=== PATIENT | female | born 1965 | race Caucasian/White ===

== ENCOUNTER → 2016-04-25 | Outpatient (CLI) | payer MEDICARE ==
--- NOTE | 2016-04-25 09:16 | MRI ---
EXAM DESCRIPTION: MRI brain without contrast CLINICAL HISTORY: Dizziness. Headaches COMPARISON: None Available. TECHNIQUE: Multi planar, multi sequence MRI evaluation of the brain FINDINGS: No intracranial hemorrhage, infarction, or mass lesion. Normal culp-white matter differentiation. No restricted diffusion. Sagittal FLAIR images best demonstrate approximately 6 total punctate T2/FLAIR white matter hyperintensities in the subcortical and deep white matter bilateral cerebral hemispheres. These are nonspecific Ferkel, likely remote microvascular ischemia. This can be seen in patients with migraine headaches. There are no characteristic lesions to suggest demyelination/ multiple sclerosis. No abnormality of the corpus callosum, brainstem or posterior fossa. No structural abnormality of the brain Ventricles are normal in size and configuration Normal flow voids are present in the major intracranial arteries and dural venous sinuses No abnormality is seen along the course of the cranial nerves. Normal appearance of the temporal bones Orbits are grossly normal Normal aeration of paranasal sinuses and mastoid air cells IMPRESSION: A few bilateral punctate foci of T2/FLAIR white matter hyperintensity, nonspecific likely remote microvascular ischemia No acute abnormality of the brain Electronically signed by: Juanjo Palacios MD 04/25/2016 09:14
== END ==
LOC: MRI 08:12
PROVIDERS: ATTEND Family Medicine
DX: R42 Dizziness and giddiness (principal)

== ENCOUNTER → 2017-04-19 | Outpatient (CLI) | payer MEDICARE | END | disposition home or self-care (01) | LOC: GMATM 17:02 | PROVIDERS: ATTEND Nurse Practitioner Family | DX: N30.00 Acute cystitis without hematuria (principal) ==

== ENCOUNTER → 2017-07-02 | Outpatient (CLI) | payer MEDICARE | LOC: GMAB 17:05 | PROVIDERS: ATTEND Family Medicine | DX: N39.0 Urinary tract infection, site not specified (principal) ==

== ENCOUNTER → 2018-01-18 | Outpatient (CLI) | payer MEDICARE | LOC: LAB.O 08:38 | PROVIDERS: ATTEND General Practice | DX: Z00.00 Encounter for general adult medical examination without abnormal findings (principal); Z13.1 Encounter for screening for diabetes mellitus; K21.9 Gastro-esophageal reflux disease without esophagitis; R53.83 Other fatigue; K29.70 Gastritis, unspecified, without bleeding ==

== ENCOUNTER → 2018-02-21 | Outpatient (CLI) | payer MEDICARE ==
--- NOTE | 2018-02-22 09:35 | RAD ---
EXAM DESCRIPTION: Shoulder,Left 2 or More Views CLINICAL HISTORY: PAIN COMPARISON: November 04, 2015 IMPRESSION: 4 views of the left shoulder shows no evidence of acute fracture, focal bone destruction, or joint dislocation. Irregularity of the lateral aspect of the humeral head is again seen which could be related to prior surgery and/or degenerative changes. The left acromioclavicular joint is unremarkable. Electronically signed by: Dajuan Singleton MD 02/22/2018 9:33 AM [facility]
== END ==
LOC: RAD 16:43
PROVIDERS: ATTEND Orthopaedic Surgery
DX: M25.512 Pain in left shoulder (principal)

== ENCOUNTER → 2018-02-27 | Outpatient (CLI) | payer MEDICARE ==
--- NOTE | 2018-02-27 10:37 | MRI ---
MRI left shoulder without contrast INDICATION: Shoulder pain previous surgery COMPARISON: MRI left shoulder March 28, 2016 TECHNIQUE: Noncontrast MR imaging left shoulder FINDINGS: There is tendinopathy of the subscapularis with mild edema at the lesser tuberosity. No rupture or retraction. No bicep rupture or dislocation. Moderate subacromial and subdeltoid bursitis. Previous repair of the supraspinatus and infraspinatus tendons with tendinosis and mild scarring. No rupture or retraction. Mild degenerative fraying of the labrum and minimal glenohumeral osteoarthrosis. No advanced arthrosis of the AC joint. Small subacromial enthesophyte. Grade 1-2 fatty marbling throughout the rotator cuff muscle bellies fairly symmetric. IMPRESSION: Rotator cuff repair without recurrent rupture or retraction Labral degeneration and minimal glenohumeral osteoarthrosis Moderate subacromial and subdeltoid bursitis Grade 1-2 fatty marbling of the rotator cuff muscle bellies Electronically signed by: Wes Durand MD 02/27/2018 10:35 AM [facility]
== END ==
LOC: MRI 07:07
PROVIDERS: ATTEND Orthopaedic Surgery
DX: M25.512 Pain in left shoulder (principal); M19.012 Primary osteoarthritis, left shoulder

== ENCOUNTER 2018-10-20 12:33 | Emergency (ER) | payer MEDICARE ==
[2018-10-20] MEDS ORDERED: HYDROmorphone HCL INJ 2 MG/ML VIAL IM ONE (12:40)
[2018-10-20] MEDS ORDERED: ONDANSETRON INJ 4 MG/2 ML VIAL IM ONE (12:40)
--- NOTE | 2018-10-20 12:43 | ED.PDOC ---
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 Occurred: just prior to arrival Pain - Lower Extremity: severe: Right Ankle Method of Injury: twisted Improving Factors: nothing Worsening Factors: movement Allergies/Adverse Reactions: Allergies Aspirin Allergy (Verified 11/04/15 14:39) Codeine Allergy (Verified 11/04/15 14:39) Ketorolac Tromethamine [From Toradol] Allergy (Verified 11/04/15 14:39) Naproxen [From Naprosyn] Allergy (Verified 11/04/15 14:39) NSAIDs Allergy (Verified 11/04/15 14:39) Home Medications: Ambulatory Orders Esomeprazole Magnesium [Nexium] 40 mg PO DAILY 08/12/15 Tramadol HCl 50 mg PO PRN PRN 08/12/15 diphenhydrAMINE HCL [Benadryl] 25 mg PO PRN PRN 08/12/15 Gabapentin 300 mg PO DAILY 11/04/15 HYDROcodone 5MG/APAP 325MG [Cors[place] 5/325] 1 tab PO Q4H PRN #20 tab 11/04/15 Tramadol HCl 50 mg PO Q4HWA PRN #20 tab 10/20/18 Review of Systems - Review of Systems Constitutional: States: no symptoms reported EENTM: States: no symptoms reported Gastrointestinal/Abdominal: States: no symptoms reported Musculoskeletal: States: see HPI, joint pain, joint swelling Skin: States: no symptoms reported Neurological: States: no symptoms reported Endocrine: States: no symptoms reported Hematologic/Lymphatic: States: no symptoms reported Past Medical History (General) - Patient Medical History Hx Asthma: Yes - hasnt had an attack in 10 years Hx Congestive Heart Failure: No Hx Diabetes: No - Vaccination History Hx Tetanus, Diphtheria Vaccination: Yes Hx Influenza Vaccination: No Hx Pneumococcal Vaccination: No - Social History Hx Tobacco Use: No Hx Alcohol Use: Yes - socially - Female History Patient : No Family Medical History - Family History Mother Maternal Family History: Unknown Living Status: Unknown Physical Exam - Physical Exam General Appearance: Alert, Obvious distress Eyes, Ears, Nose, Throat: PERRL/EOMI Thigh/Hip: normal inspection, non-tender Leg: other - tender distally Knee: normal inspection, non-tender, no evidence of injury Ankle: limited ROM, swelling - diffusely 2+ edema Foot: normal inspection, non-tender Neuro/Tendon: normal sensation Mental Status: alert, oriented x 3 Skin: normal color, warm/dry Departure - Departure Clinical Impression: Fracture of ankle, medial malleolus, right, closed Qualifiers: Encounter type: initial encounter Fracture alignment: displaced Qualified Code(s): S82.51XA - Displaced fracture of medial malleolus of right tibia, initial encounter for closed fracture Fracture of distal end of right fibula Qualifiers: Encounter type: initial encounter Fracture type: closed Fracture morphology: other fracture Qualified Code(s): S82.831A - Other fracture of upper and lower end of right fibula, initial encounter for closed fracture Disposition: Discharge to Home or Self Care Referrals: Sabas Laguna MD [Primary Care Provider] - 1-2 Weeks Juan Robb MD [Active Staff] - 1-5 Days Prescriptions: Tramadol HCl 50 mg PO Q4HWA PRN #20 tab PRN Reason: Moderate To Severe Pain Home Medications: Ambulatory Orders Esomeprazole Magnesium [Nexium] 40 mg PO DAILY 08/12/15 Tramadol HCl 50 mg PO PRN PRN 08/12/15 diphenhydrAMINE HCL [Benadryl] 25 mg PO PRN PRN 08/12/15 Gabapentin 300 mg PO DAILY 11/04/15 HYDROcodone 5MG/APAP 325MG [Corsica 5/325] 1 tab PO Q4H PRN #20 tab 11/04/15 Tramadol HCl 50 mg PO Q4HWA PRN #20 tab 10/20/18
--- NOTE | 2018-10-20 13:25 | RAD ---
EXAM DESCRIPTION: Ankle,Right 3 Views CLINICAL HISTORY: 52 years Female turned ankle COMPARISON: None TECHNIQUE: AP, lateral and oblique views of the left ankle are obtained. FINDINGS: OSSEOUS: There is an acute, oblique fracture involving the distal diaphysis of the fibula. There is also acute fractures of the medial malleolus and the posterior malleolus. There is no evidence of subluxation or dislocation. There are small noninflamed Achilles and plantar enthesophytes. There is widening of the medial aspect of the tibiotalar joint. There is no evidence of degenerative osteophytosis or sclerosis. There is no evidence of marginal erosive changes to suggest an inflammatory arthritis. Suspect disruption of the tibiofibular syndesmosis with mild anteromedial subluxation of the tibia relative to the talus. SOFT TISSUES: There is soft tissue swelling about the ankle and a posterior hemarthrosis is not excluded. No evidence of significant soft tissue calcifications. No radiopaque foreign bodies. There is no evidence of an ankle joint effusion. IMPRESSION: Trimalleolar fractures as described with disruption of the tibiofibular syndesmosis resulting in mild anteromedial subluxation of the distal tibia relative to the talus. Remainder of findings as described above. Electronically signed by: Michela Khan MD 10/20/2018 1:22 PM CDT
[2018-10-20 14:19] VITALS: BP 115/68; TEMP 98.2; O2SAT 97
== END 2018-10-20 14:00 | disposition home or self-care (01) ==
LOC: ER 12:33
DX: S82.51XA Displaced fracture of medial malleolus of right tibia, initial encounter for closed fracture (principal); S82.831A Other fracture of upper and lower end of right fibula, initial encounter for closed fracture; J45.909 Unspecified asthma, uncomplicated; Z79.899 Other long term (current) drug therapy; Z88.6 Allergy status to analgesic agent; Z88.5 Allergy status to narcotic agent; X50.9XXA Other and unspecified overexertion or strenuous movements or postures, initial encounter; Y92.9 Unspecified place or not applicable
CPT/HCPCS: 73610; J1170; J2405

== ENCOUNTER 2018-10-25 05:48 | Observation (INO) | payer MEDICARE ==
--- NOTE | 2018-10-22 09:00 | HP ---
CHIEF COMPLAINT: Left ankle pain. HISTORY OF PRESENT ILLNESS: Michela is a 53-year-old female with a history of a fall that occurred on 10/20/18. She had the acute onset of pain at that time. She complains of pain now on the ankle without radiation or neurologic symptoms. She denies any other injury associated with this fall. The pain itself is sharp and she has been in a splint since the injury occurred. PAST SURGICAL HISTORY: 1. Rotator cuff repair. 2. Gastric bypass. 3. Left knee surgery. MEDICATIONS: 1. Tramadol. 2. Linzess. 3. Singulair. PAIN CONTRACT: None. ALLERGIES: ASPIRIN, NAPROSYN, TORADOL, CODEINE, PENICILLIN. CODE STATUS: Full code. IMMUNIZATIONS: Up to date. SOCIAL HISTORY: The patient does not smoke or use any illicit drugs. She does drink on occasion. FAMILY HISTORY: None pertinent to today's complaint. REVIEW OF SYSTEMS: Negative except as indicated in the History of Present Illness. PHYSICAL EXAMINATION: VITAL SIGNS: Blood pressure 138/78. Pulse 64. Height 5'8". Weight 240 pounds. GENERAL: She is an obese female in no acute distress. MENTAL STATUS: The patient is awake, alert, and is able to give a good history and participate in the physical. The patient is oriented to person, place and time. SKIN: Normal tone and turgor. HEENT: Normocephalic, atraumatic. Pupils equal, round and reactive. Mucosal membranes are moist. NECK: Normal range of motion. No thyromegaly, no lymphadenopathy. CHEST: Normal respiratory excursion. CARDIAC: Regular rate and rhythm. No murmurs, rubs or gallops. MUSCULOSKELETAL: The bilateral upper extremities show full range of motion although she does have some pain in the shoulders. She has intact sensation and they are warm and well perfused. Strength in associate professor is 5/5. She has no deformities. The right lower extremity shows no deformities. She has no evidence of pain. Sensation is intact. It is warm and well perfused. The has full range of motion in the hip and knee. The left lower extremity shows diffuse swelling distally. The skin is intact. Around the ankle, she does have the aforementioned swelling with some bruising. The digits are warm and well perfused. She is able to move the digits without significant discomfort. The extremity otherwise is without any deformities. IMAGING: X-rays show a bimalleolar ankle fracture. ASSESSMENT: 1. Bimalleolar ankle fracture. PLAN: The plan at this point is for an open reduction and internal fixation. We have discussed the risks, benefits, and alternatives to that and the patient has given informed consent. [facility][id number] [facility]
--- NOTE | 2018-10-22 14:40 | RAD ---
EXAM DESCRIPTION: Chest,2 Views CLINICAL HISTORY: PREOP COMPARISON: Two view chest x-ray February 20, 2017 TECHNIQUE: PA/lateral FINDINGS: Right hemidiaphragm is elevated. Heart size is normal with normal pulmonary vascularity. No pleural effusion or pneumothorax. Lungs are clear with no consolidating infiltrate. Lateral view shows intact sternum and spurring in the mid T-spine. IMPRESSION: No acute process is identified in the chest. Electronically signed by: Denis Wall MD 10/22/2018 2:37 PM CDT
[2018-10-25] MEDS ORDERED: PROPOFOL 200 MG/20 ML VIAL IV ONE (07:00)
[2018-10-25] MEDS ORDERED: raNITIdine HCL INJ 25 MG/ML VIAL ONE (07:00)
[2018-10-25] MEDS ORDERED: LIDOCAINE 1% 10 ML VIAL INJ ONE (07:00)
[2018-10-25] MEDS ORDERED: DEXAMETHASONE INJ 10 MG/ML VIAL ONE (07:00)
[2018-10-25] MEDS ORDERED: SODIUM CHLORIDE 0.9% 50 ML VIAL ONE (07:00)
[2018-10-25] MEDS ORDERED: LACTATED RINGERS 1,000 ML ONE (13:21)
[2018-10-25] MEDS ORDERED: LACTATED RINGERS 1,000 ML BAG IV ONE (13:30)
[2018-10-25] MEDS ORDERED: ceFAZolin SODIUM 1 GM VIAL ONE (13:34)
[2018-10-25] MEDS ORDERED: SODIUM CHL 0.9% 100ML MINI-BAG 100 ML IVPB ONE (13:34)
[2018-10-25] MEDS ORDERED: VANCOMYCIN HCL INJ 1,000 MG VIAL IVPB ONE ×3 (13:34→13:43)
[2018-10-25] MEDS ORDERED: SODIUM CHLORIDE 0.9% 250ML 250 ML ONE (13:35)
[2018-10-25] MEDS ORDERED: BISACODYL SUPPOSITORY 10 MG PR PRN (14:00)
[2018-10-25] MEDS ORDERED: ALUMINUM & MAGNESIUM HYDROXIDE 30 ML UD PO PRN (14:00)
[2018-10-25] MEDS ORDERED: MAGNESIUM HYDROXIDE 30 ML UD PO PRN (14:00)
[2018-10-25] MEDS ORDERED: ACETAMINOPHEN 325 MG TAB PO PRN (14:00)
[2018-10-25] MEDS ORDERED: CYCLOBENZAPRINE HCL 10 MG TAB PO PRN (14:00)
[2018-10-25] MEDS ORDERED: ZOLPIDEM TARTRATE 5 MG TAB PO PRN (14:00)
[2018-10-25] MEDS ORDERED: BENZOCAINE-MENTH LOZ (CEPACOL) 1 EA LOZ MT PRN (14:00)
[2018-10-25] MEDS ORDERED: TEMAZEPAM 15 MG CAP PO PRN (14:00)
[2018-10-25] MEDS ORDERED: diphenhydrAMINE HCL 50 MG/ML VIAL ONE (14:12)
[2018-10-25] MEDS ORDERED: MIDAZOLAM INJ 2 MG/2 ML VIAL ONE (14:20)
[2018-10-25] MEDS ORDERED: fentaNYL CITRATE INJ 50 MCG/ML AMP ONE (14:20)
[2018-10-25] MEDS ORDERED: KETAMINE HCL 100 MG/ML VIAL ONE (14:20)
[2018-10-25] MEDS ORDERED: ACETAMINOPHEN IV 1000MG 0 ML ONE (15:03)
[2018-10-25] MEDS: BUPIVACAINE 0.5% 30 ML VIAL INJ ONE ×2 (15:12→16:04)
[2018-10-25] MEDS: BUPIVACAINE LIPOSOME 13.3 MG/ML VIAL INJ ONE ×2 (15:13→16:04)
[2018-10-25] MEDS: ceFAZolin SODIUM 1 GM VIAL ONE ×4 (15:13→16:00)
[2018-10-25] MEDS ORDERED: LACTATED RINGERS 1,000 ML IVS ONE (16:56)
[2018-10-25] MEDS ORDERED: LEVALBUTEROL NEBS 1.25 MG/3 ML VIAL NEB ONE ×2 (17:08→17:10)
[2018-10-25] MEDS ORDERED: MEPERIDINE HCL 50 MG/ML VIAL ONE (17:08)
[2018-10-25] MEDS ORDERED: MEPERIDINE HCL 50 MG/ML VIAL IV ONE (17:10)
[2018-10-25] MEDS ORDERED: BUPIVACAINE 0.5% 30 ML VIAL INJ ONE (17:21)
--- NOTE | 2018-10-25 17:41 | RAD ---
EXAM DESCRIPTION: Ankle,Left 2 Views CLINICAL HISTORY: 53 years Female ,post op COMPARISON: 10/20/2018. TECHNIQUE: Left ankle, two views FINDINGS: Open reduction and internal fixation of distal fibular and medial malleolar fracture. Alignment is near-anatomic. Medial malleolar fracture line still well visualized. Soft tissue swelling. Small joint effusion noted. IMPRESSION: ORIF with anatomic alignment Soft tissue swelling and small joint effusion Electronically signed by: Sangeeta Zaragoza MD 10/25/2018 5:39 PM CDT
[2018-10-25] MEDS: traMADol HCL 50 MG TAB PO PRN (22:42)
[2018-10-25] MEDS: diphenhydrAMINE HCL 25 MG CAP PO PRN (22:47)
[2018-10-26] MEDS: diphenhydrAMINE HCL 25 MG CAP PO PRN ×2 (05:51→10:53)
[2018-10-26] MEDS: traMADol HCL 50 MG TAB PO PRN (05:51)
[2018-10-26] MEDS ORDERED: OMEPRAZOLE CAP 20 MG CAP PO SCH (06:30)
[2018-10-26] MEDS ORDERED: traMADol HCL 50 MG TAB PO PRN (08:30)
[2018-10-26] MEDS ORDERED: LORATADINE 10 MG TAB PO SCH (09:00)
[2018-10-26] MEDS ORDERED: NON-FORMULARY MEDICATION 1 EA MIS (Linaclotide [Linzess] 72 MCG) PO SCH (09:00)
[2018-10-26] MEDS ORDERED: HYDROcodone 5MG/APAP 325MG 1 EA TAB PO ONE (11:49)
[2018-10-26 13:32] VITALS: O2SAT 94
[2018-10-26 17:04] VITALS: BP 123/78; TEMP 97.7
--- NOTE | 2018-10-28 08:02 | RAD ---
Findings/ impression: One intraoperative fluoroscopic image of the left ankle. No hardware complication. Dose: 71 mGy Time: One minute three seconds Electronically signed by: Gianfranco Phillips MD 10/28/2018 8:00 AM CDT
--- NOTE | 2018-10-30 08:24 | OP ---
DATE OF PROCEDURE: 10/25/18 PREOPERATIVE DIAGNOSIS: 1. Left ankle fracture. POSTOPERATIVE DIAGNOSIS: 1. Left ankle fracture. PROCEDURE: 1. Open reduction and internal fixation of ankle. SURGEON: Juan Robb MD. GERIATRIC NURSE ASSISTANT: Darnell San CST, SA-C. ANESTHESIA: General anesthesia. COMPLICATIONS: None. FINDINGS: Fracture of the distal fibula and fracture of the medial malleolus. INDICATION: Michela has a history of twisting injury after a fall a couple of days before presentation. Unfortunately, she had the acute onset of pain and x-rays revealed a fracture of the ankle. After discussing the risks, benefits and alternatives to ORIF, she gave informed consent for that. PROCEDURE: The patient was brought to the Operating Room and placed in supine position. General anesthesia was induced and the patient's leg was sterilely prepped and draped. Following prepping and draping, an incision was made on the lateral border of the fibula. Dissection was carried down to the fibula and the periosteum was elevated over the fracture site. The fracture was reduced and the reduction was checked under fluoroscopic imaging. Following that, a plate was applied and a combination of locking and cortical bone screws were used to fixed the plate. Attention was focused on the medial side and an incision was made directly over the fracture. It was visualized, reduced with a clamp and two 4.0 partially threaded cancellous screws were placed across the fracture. The ankle was stressed under fluoroscopic imaging and there was no lateral translation of the talus. The wounds were very thoroughly irrigated and closed. Sterile dressings were placed. The patient was placed in a splint, awoken from anesthesia and taken to Recovery. POSTOPERATIVE PLAN: She will be non-weightbearing and will be admitted overnight for pain control and elevation. #[id number] [facility]
== END 2018-10-26 17:15 | disposition home or self-care (01) ==
LOC: AMB 05:48 → MS 18:27
PROVIDERS: ADMIT Orthopaedic Surgery; ATTEND Nurse Practitioner Acute Care
DX: S82.842A Displaced bimalleolar fracture of left lower leg, initial encounter for closed fracture (principal); M25.472 Effusion, left ankle; J45.909 Unspecified asthma, uncomplicated; K21.9 Gastro-esophageal reflux disease without esophagitis; E66.9 Obesity, unspecified; W18.39XA Other fall on same level, initial encounter; Z68.37 Body mass index [BMI] 37.0-37.9, adult; Z79.51 Long term (current) use of inhaled steroids; Z79.899 Other long term (current) drug therapy; Z88.0 Allergy status to penicillin; Z88.6 Allergy status to analgesic agent; Z88.8 Allergy status to other drugs, medicaments and biological substances
CPT/HCPCS: 27814; 01480; C1713 ×7; J0690 ×3; Q0163 ×3; J1200; J3010; J2175 ×2; J3490 ×2; J7050 ×2; J3370 ×2; J1100; J2250; J2780; J1956; A4216; J7614 ×2; J7120 ×3; 80048; 80307; 36415; 87077; 87186; 81001; 85025; 87070; 71046; 76000; 73600; 93005

== ENCOUNTER → 2018-11-04 | Outpatient (CLI) | payer MEDICARE ==
--- NOTE | 2018-11-04 10:21 | RAD ---
3 radiographs left ankle Indication: S82.92XA Comparison: October 25, 2017 Impression: Stable medial malleolus and distal fibular surgical constructs. No hardware, patient identified. The medial malleolar fracture appears ununited with a 4 mm fracture gap as best visualized on the lateral image. The fibular fracture is slightly less distinct suggesting a component of healing but incompletely united at this time. Soft tissue swelling about the ankle. No new complicating features. Calcaneal spurring at the Achilles tendon insertion and plantar fascia origin. Electronically signed by: Adan Ro MD 11/04/2018 10:19 AM CDT
== END ==
LOC: RAD 08:40
PROVIDERS: ATTEND Orthopaedic Surgery
DX: S82.51XD Displaced fracture of medial malleolus of right tibia, subsequent encounter for closed fracture with routine healing (principal); S82.831D Other fracture of upper and lower end of right fibula, subsequent encounter for closed fracture with routine healing; M77.32 Calcaneal spur, left foot; Z98.890 Other specified postprocedural states

== ENCOUNTER → 2018-12-05 | Outpatient (CLI) | payer MEDICARE ==
--- NOTE | 2018-12-05 14:13 | RAD ---
EXAM DESCRIPTION: Ankle,Left 3 Views CLINICAL HISTORY: S82.842D COMPARISON: October 2018 TECHNIQUE: 3 views left FINDINGS: Prior ORIF of a medial and lateral malleolar fracture observed. Soft tissue swelling is observed about the ankle. No hardware failure seen. Callus formation is seen to bridge both fracture sites. A plantar and Achilles enthesophytes are observed. Mild osteopenia is observed about the ankle. IMPRESSION: Prior ORIF of medial and lateral malleolar fractures are observed. No change in alignment is noted. There is evidence of interval healing. Electronically signed by: Kevin Diop MD 12/05/2018 2:11 PM CDT
== END ==
LOC: RAD 07:36
PROVIDERS: ATTEND Orthopaedic Surgery
DX: S82.842D Displaced bimalleolar fracture of left lower leg, subsequent encounter for closed fracture with routine healing (principal)

== ENCOUNTER → 2019-01-20 | Outpatient (CLI) | payer MEDICARE ==
--- NOTE | 2019-01-20 11:42 | RAD ---
EXAM DESCRIPTION: Ankle,Left 3 Views CLINICAL HISTORY: 53 years Female, DISPLACED BIMALLEOLAR FRACTURE OF LEFT LOWER LEG COMPARISON: Radiographs the left ankle dated 12/05/2018. TECHNIQUE: AP, oblique and lateral radiographs. FINDINGS: The visualized bones appear poorly mineralized. Intact plate and screw fixation of the distal fibula and medial malleolus. Some interval healing is identified with poor visualization the fracture lines. The ankle mortise is intact. Degenerative changes are identified in the tibiotalar joint. The soft tissues appear grossly unremarkable. IMPRESSION: Intact plate and screw fixation of the distal fibula and medial malleolus. Some interval healing is identified with poor visualization of the fracture lines. Electronically signed by: Alea Kearney MD 01/20/2019 11:40 AM CDT
== END ==
LOC: RAD 09:12
PROVIDERS: ATTEND Orthopaedic Surgery
DX: S82.842D Displaced bimalleolar fracture of left lower leg, subsequent encounter for closed fracture with routine healing (principal); Z98.890 Other specified postprocedural states

== ENCOUNTER → 2019-02-17 | Outpatient (CLI) | payer MEDICARE ==
--- NOTE | 2019-02-17 09:41 | RAD ---
EXAM DESCRIPTION: Ankle,Left 3 Views CLINICAL HISTORY: 53 years, Female, PAIN IN LEFT ANKLE COMPARISON: None. TECHNIQUE: AP/lateral/oblique of the left ankle FINDINGS: Screws are seen through the medial malleolus. Plate and screws in the distal fibula. Anatomic alignment is noted. No change compared to previous. There is marked soft tissue swelling laterally and medially. Intact proximal metatarsals. Intact dome of the talus. Lateral view shows no evidence of fracture of the body of the talus or calcaneus. Prominent plantar and dorsal calcaneal enthesophytes with dystrophic calcification of the distal Achilles tendon. Osteopenic appearance of the bones of the midfoot. IMPRESSION: Orthopedic hardware in the distal left tibia and fibula. No change in alignment. Electronically signed by: Denis Wall MD 02/17/2019 9:40 AM [facility]
--- NOTE | 2019-02-17 09:45 | RAD ---
EXAM DESCRIPTION: Knee,Left Complete CLINICAL HISTORY: 53 years, Female, PAIN IN LEFT KNEE COMPARISON: None TECHNIQUE: Four views of the left knee FINDINGS: No fracture or dislocation. Bones appear osteopenic. Narrowed appearance of medial more than lateral compartments on frontal view with prominent lateral joint line spurring and spurring of the tibial spines. Sclerotic appearance of the femoral condyles. Lateral view shows normal position of the patella. Superior patellar enthesopathy is seen at the quadriceps tendon attachment site. No suprapatellar knee joint effusion. Normal contour of quadriceps and patellar tendons. Spurring of the medial and lateral aspects of the patella and anterior lateral femoral condyle on patellar sunrise view. No patellar dislocation. IMPRESSION: Degenerative changes as described. Electronically signed by: Denis Wall MD 02/17/2019 9:43 AM [facility]
--- NOTE | 2019-02-17 09:47 | RAD ---
EXAM DESCRIPTION: Pelvis CLINICAL HISTORY: 53 years Female, PAIN IN LEFT HIP COMPARISON: KUB February 19, 2014 FINDINGS: No fracture. No dislocation. Normal bony mineralization. Mild degenerative changes of pubic symphysis at the SI joints. Sacrum appears intact. IMPRESSION: Negative for fracture. Electronically signed by: Denis Wall MD 02/17/2019 9:45 AM [facility]
== END ==
LOC: RAD 09:00
PROVIDERS: ATTEND Orthopaedic Surgery
DX: S82.842D Displaced bimalleolar fracture of left lower leg, subsequent encounter for closed fracture with routine healing (principal); M17.12 Unilateral primary osteoarthritis, left knee; M25.552 Pain in left hip

== ENCOUNTER → 2019-02-19 | Outpatient (CLI) | payer MEDICARE ==
--- NOTE | 2019-02-20 11:59 | MRI ---
Study: MRI of the Left Knee. Indication: TEAR OF MEDIAL MENISCUS LEFT KNEE Technique: Multiplanar, multi sequence MRI of the left knee was obtained without intravenous contrast. Comparison: None. Findings: ACL, PCL, and lateral collateral ligament complex intact. MCL is lax and bowed indicating sequela of a prior MCL sprain. No acute tear. Degenerative signal posterior horn and body medial meniscus without tear. Free edge fraying body lateral meniscus. Grade 2 and 3 chondral thinning throughout the medial compartment with grade 2 changes lateral compartment. Patchy marrow edema throughout the posterior margin of the medial tibial plateau with a tiny subchondral fracture noted on sagittal PD image 23 mm underlying the posterior horn of the medial meniscus. Associated moderate size knee effusion noted. Tendinosis and enthesophyte formation at the quadriceps tendon insertion. Patellar tendon intact. Patella normally located. Patchy areas of grade 2 and 3 chondrosis throughout the patella. Moderate size knee effusion. Prior lateral retinacular release may have been performed. Moderate anterior subcutaneous edema. Impression: Degenerative changes medial meniscus and lateral meniscus. Tiny subchondral fracture posterior margin medial tibial plateau with surrounding marrow edema. Grade 2-3 chondrosis medial compartment as well as throughout the patella. Moderate size knee effusion. Additional findings as above. Electronically signed by: Adan Ro MD 02/20/2019 11:58 AM ENVIRONMENTAL STUDIES PROFESSOR
== END ==
LOC: MRI 13:53
PROVIDERS: ATTEND Orthopaedic Surgery
DX: S83.242A Other tear of medial meniscus, current injury, left knee, initial encounter (principal); M23.301 Other meniscus derangements, unspecified lateral meniscus, left knee; S82.102A Unspecified fracture of upper end of left tibia, initial encounter for closed fracture; M94.212 Chondromalacia, left shoulder

== ENCOUNTER → 2019-04-14 | Outpatient (CLI) | payer MEDICARE | LOC: LAB.O 09:06 | PROVIDERS: ATTEND Family Medicine | DX: Z01.89 Encounter for other specified special examinations (principal); N39.41 Urge incontinence ==

== ENCOUNTER → 2019-04-15 | Outpatient (CLI) | payer MEDICARE | LOC: LAB.O 09:09 | PROVIDERS: ATTEND Orthopaedic Surgery | DX: Z01.818 Encounter for other preprocedural examination (principal) ==

== ENCOUNTER 2019-04-23 05:31 | Day surgery (SDC) | payer MEDICARE ==
[2019-04-23] MEDS ORDERED: LIDOCAINE 1% 10 ML VIAL INJ ONE (07:00)
[2019-04-23] MEDS ORDERED: PROPOFOL 200 MG/20 ML VIAL IV ONE (07:00)
[2019-04-23] MEDS ORDERED: ONDANSETRON INJ 4 MG/2 ML VIAL ONE (07:00)
[2019-04-23] MEDS ORDERED: DEXAMETHASONE INJ 10 MG/ML VIAL ONE (07:00)
[2019-04-23] MEDS ORDERED: SODIUM CHL 0.9% 100ML MINI-BAG 100 ML IVPB ONE (12:08)
[2019-04-23] MEDS ORDERED: ceFAZolin SODIUM 1 GM VIAL ONE (12:09)
[2019-04-23] MEDS ORDERED: LACTATED RINGERS 1,000 ML ONE (12:09)
[2019-04-23] MEDS ORDERED: LACTATED RINGERS 1,000 ML IVS ONE (12:25)
[2019-04-23] MEDS ORDERED: fentaNYL CITRATE INJ 50 MCG/ML AMP ONE (13:40)
[2019-04-23] MEDS ORDERED: MIDAZOLAM INJ 2 MG/2 ML VIAL ONE (13:40)
[2019-04-23] MEDS: ceFAZolin SODIUM 1 GM VIAL ONE ×3 (14:20→14:36)
[2019-04-23] MEDS: BUPIVACAINE 0.5% 30 ML VIAL INJ ONE ×3 (14:21→14:39)
[2019-04-23] MEDS: BUPIVACAINE LIPOSOME 13.3 MG/ML VIAL INJ ONE ×3 (14:21→14:39)
[2019-04-23] MEDS: VANCOMYCIN HCL INJ 1,000 MG VIAL IVPB ONE ×2 (14:23→14:36)
[2019-04-23] MEDS ORDERED: MEPERIDINE HCL 50 MG/ML VIAL ONE (15:15)
[2019-04-23 15:40] VITALS: O2SAT 95
[2019-04-23] MEDS ORDERED: HYDROcodone 5MG/APAP 325MG 1 EA TAB ONE (16:25)
[2019-04-23 17:27] VITALS: BP 115/70; TEMP 98.9
--- NOTE | 2019-04-25 09:59 | OP ---
DATE OF PROCEDURE: 04/23/19 PREOPERATIVE DIAGNOSIS: 1. Chondromalacia. 2. Meniscus tear. POSTOPERATIVE DIAGNOSIS: 1. Chondromalacia. 2. Meniscus tear. PROCEDURE: 1. Knee arthroscopy with partial medial meniscectomy. 2. Chondroplasty. SURGEON: Juan Robb MD. FAMILY LAW PARALEGAL: Darnell San CST, -C. ANESTHESIA: General anesthesia. COMPLICATIONS: None. FINDINGS: 1. Large flap tear of the medial meniscus involving the anterior body. 2. Large areas of grade 3 and grade chondromalacia of the medial femoral condyle. 3. Grade 2 to 3 cartilaginous changes of the tibial plateau. 4. Normal ACL, normal PCL. 5. Softening of the cartilage of the lateral compartment. 6. Normal lateral gutter. 7. Normal suprapatellar pouch. 8. Advanced chondromalacia of the patellofemoral joint. 9. Normal medial gutter. INDICATION: Michela has a long history of knee pain. It has been refractory to conservative measures. Because of her ongoing pain, she has requested operative intervention. After discussing the risks, benefits and alternatives to that, the patient has given informed consent for that. PROCEDURE: The patient was brought to the Operating Room and placed in supine position. General anesthesia was induced and the patient's leg was sterilely prepped and draped. Following prepping and draping, standard anteromedial and anterolateral portals were established. Diagnostic arthroscopy was carried out with the above findings. Attention was then focused on medial compartment. A 3.5 mm full radius shaver was used to debride the medial meniscus. It was thoroughly probed to ensure the remaining meniscal rim was stable. The cartilaginous surfaces on the medial femoral condyle were debrided. That was probed to ensure no free flaps of cartilage remained. The patellofemoral joint was then addressed and the femoral cartilage as well as the patellar cartilage were debrided. After ensuring all debris was removed, the knee was thoroughly irrigated. Following irrigation, the wounds were closed with Nylon suture. Sterile dressings were placed. The patient was awoken from anesthesia and taken to Recovery. POSTOPERATIVE PLAN: The patient will be non-weightbearing until she follows up with us in the clinic two days. #[id number] [facility]
== END 2019-04-23 17:10 | disposition home or self-care (01) ==
LOC: AMB 05:31
PROVIDERS: ATTEND Orthopaedic Surgery
DX: S83.242A Other tear of medial meniscus, current injury, left knee, initial encounter (principal); M94.262 Chondromalacia, left knee; K21.9 Gastro-esophageal reflux disease without esophagitis; J45.909 Unspecified asthma, uncomplicated; Z90.710 Acquired absence of both cervix and uterus; Z98.84 Bariatric surgery status; Z88.0 Allergy status to penicillin; Z88.5 Allergy status to narcotic agent; Z88.6 Allergy status to analgesic agent; Z87.891 Personal history of nicotine dependence; Z79.899 Other long term (current) drug therapy
CPT/HCPCS: 01400; 29881; 80307; J0690; J1100; J2175; J2250; J2405; J3010; J3370; J3490; J7050; J7120

== ENCOUNTER → 2019-05-07 | Outpatient (CLI) | payer MEDICARE ==
--- NOTE | 2019-05-08 15:06 | MAM ---
EXAM DESCRIPTION: 3D Screening BILATERAL : Digital Mammography. CLINICAL HISTORY: 53 years Female ANNUAL SCREENING . No complaints. No personal or family history of breast cancer. Menarche age 9. Childbirth age 18. Hysterectomy age unknown. No HRT. Lifetime risk of developing breast cancer (Tyrer-Cuzick model)(%): 8.1. COMPARISON: Bilateral film screen screening mammography. May 2008. No prior reports available. TECHNIQUE: Bilateral CC and MLO projection full-field mages, digital tomosynthesis mammographic technique. Bilateral digital 2-D full-field MLO images. CAD available for 2-D images. FINDINGS: The breast parenchymal density pattern is: Scattered areas of fibroglandular density. No skin thickening or nipple retraction. Bilateral breast have enlarged significantly since the prior study with bilateral fatty replacement decreasing the bilateral fatty density. Bilateral axillary lymph nodes. Bilateral solitary microcalcifications. Bilateral intramammary lymph nodes. No new focal, stellate mass or density, focal asymmetry , and no suspicious microcalcifications bilaterally IMPRESSION: Benign exam. Breast density more fatty with bilateral breast enlargement since the prior study. BIRAD CATEGORY: 2 BENIGN FINDINGS. RECOMMENDATIONS: FOLLOW UP: Routine digital bilateral mammographic screening, one year interval from April 2019. Written communication explaining the IMPRESSION and follow-up, will be mailed to the patient and referring health care provider. According to the [employer], yearly mammograms are recommended starting at age 40 and continuing as long as a woman is in good health. Any breast change noted on a breast self-exam should be reported promptly to the patient's healthcare provider. Breast MRI is recommended for women with an approximately 20-25% or greater lifetime risk of breast cancer, including women with a strong family history of breast or ovarian cancer and women who have been treated for Hodgkin's disease. A negative mammographic report should not delay tissue diagnosis in patients with significant clinical history or physical findings. Extremely dense breast tissue limits the sensitivity of digital mammography. Electronically signed by: Darnell Sawant MD 05/08/2019 3:04 PM [employer] [facility]
== END ==
LOC: MAMMO 09:31
PROVIDERS: ATTEND Family Medicine
DX: Z12.31 Encounter for screening mammogram for malignant neoplasm of breast (principal)

== ENCOUNTER → 2019-08-15 | Outpatient (CLI) | payer MEDICARE ==
--- NOTE | 2019-08-15 16:16 | RAD ---
EXAM DESCRIPTION: Ankle,Left 3 Views CLINICAL HISTORY: 53 years Female, EFFUSION OF ANKLE COMPARISON: 02/17/2019.. TECHNIQUE: 3 view radiographs of the left ankle. IMPRESSION: It Stable lateral screw-plate fixation traversing distal fibula without hardware competition. Stable orthopedic screws traversing the medial malleolus without hardware competition. No acute displaced fracture. Ankle mortise remains unchanged. Probable small tibiotalar joint effusion. Large calcaneal enthesophytes at the plantar fascia and Achilles tendon insertion. Moderate soft tissue swelling about the ankle. Electronically signed by: Sergei Brewster MD 08/15/2019 4:15 PM CDT
== END ==
LOC: RAD 15:43
PROVIDERS: ATTEND Nurse Practitioner
DX: M25.472 Effusion, left ankle (principal); Z98.890 Other specified postprocedural states; M77.32 Calcaneal spur, left foot; M79.9 Soft tissue disorder, unspecified

== ENCOUNTER 2019-12-12 05:41 | Day surgery (SDC) | payer MEDICARE ==
[2019-12-12] MEDS ORDERED: LACTATED RINGERS 1,000 ML ONE (06:30)
[2019-12-12] MEDS ORDERED: PROPOFOL 200 MG/20 ML VIAL IV ONE (07:00)
[2019-12-12] MEDS ORDERED: NEOSTIGMINE METHYLSULFATE 1 MG/ML ML IV ONE (07:00)
[2019-12-12] MEDS ORDERED: LIDOCAINE 1% 10 ML VIAL INJ ONE (07:00)
--- NOTE | 2019-12-12 09:11 | OP ---
DATE OF PROCEDURE: 12/12/19 PREOPERATIVE DIAGNOSIS: 1. History of gastric bypass surgery, uncertain type, with epigastric pain. POSTOPERATIVE DIAGNOSIS: 1. Gastritis post gastric surgery. SURGEON: Sha Benites MD ANESTHESIA: General. FINDINGS: There is some redness about the pylorus. The duodenum appeared normal. Her stomach, no bypass was appreciated, however, in the proximal third of the stomach, there were a couple of sutures seen where there had been surgery with a proximal pouch, then a narrowing and then the remainder of the stomach. I am not sure what type this was. We will try to get the old op notes. The proximal pouch was a bit enlarged and appeared a little flaccid. PROCEDURE: In the lateral position, anesthesia was induced. The scope was inserted without difficulty all the way to the stomach and then it was passed into the duodenum without difficulty. There was some bile reflux down at the pylorus. It was okay, there was no evidence of ulcer of the pylorus. Upon withdrawal, the antrum appeared reddened. Biopsy was taken and an additional for H. pylori. Upon retroflexion, I identified what appeared to be a proximal possible large hiatal hernia, however, this was then noted to be associated with a suture, so there was a narrowing at this suture line. There was one on both sides, probably a Silk. Proximal to that was the GE junction that appeared intact. There were no ulcers around it, but there was no Arlene-en-Y bypass rim. It did not appear to be a sleeve. It is not a ring. It is sutured in there, so I do not know what kind of bypass it was, we will have to check. Upon further withdrawal, no other abnormalities were seen. The esophagus appeared normal. The patient was taken to Recovery to be discharged. #[id number] [facility]TDD
[2019-12-12 09:19] VITALS: BP 137/38; TEMP 97.5; O2SAT 98
== END 2019-12-12 09:20 | disposition home or self-care (01) ==
LOC: AMB 05:41
PROVIDERS: ATTEND Surgery
DX: K29.50 Unspecified chronic gastritis without bleeding (principal); J45.909 Unspecified asthma, uncomplicated; E78.00 Pure hypercholesterolemia, unspecified; K21.9 Gastro-esophageal reflux disease without esophagitis; Z98.84 Bariatric surgery status; Z88.1 Allergy status to other antibiotic agents; Z88.5 Allergy status to narcotic agent; Z88.8 Allergy status to other drugs, medicaments and biological substances; Z88.6 Allergy status to analgesic agent; Z88.0 Allergy status to penicillin; Z79.899 Other long term (current) drug therapy; Z79.51 Long term (current) use of inhaled steroids; Z87.891 Personal history of nicotine dependence
CPT/HCPCS: 00731; 43239; 88305; 88342; J2710; J3490; J7120

== ENCOUNTER → 2019-12-25 | Outpatient (CLI) | payer MEDICARE | LOC: LAB.O 11:09 | PROVIDERS: ATTEND Orthopaedic Surgery | DX: Z01.818 Encounter for other preprocedural examination (principal) ==

== ENCOUNTER 2020-01-21 05:14 | Inpatient (IN) | payer MEDICARE ==
[2020-01-21] MEDS ORDERED: SODIUM CHL 0.9% 100ML MINI-BAG 100 ML IVPB ONE (05:48)
[2020-01-21] MEDS ORDERED: ceFAZolin SODIUM 1 GM VIAL ONE ×2 (05:49→06:28)
[2020-01-21] MEDS ORDERED: VANCOMYCIN HCL INJ 1,000 MG VIAL IVPB ONE ×6 (05:49→15:35)
[2020-01-21] MEDS ORDERED: SODIUM CHLORIDE 0.9% 100ML 100 ML IVPB ONE (05:49)
[2020-01-21] MEDS ORDERED: SODIUM CHLORIDE 0.9% (FLUSH) 10 ML SYG ONE (05:49)
[2020-01-21] MEDS ORDERED: LACTATED RINGERS 1,000 ML ONE ×2 (05:49→10:31)
[2020-01-21] MEDS ORDERED: SODIUM CHLORIDE 0.9% 250ML 250 ML ONE (05:49)
[2020-01-21] MEDS ORDERED: TRANEXAMIC ACID 1,000 MG/10 ML VIAL ONE (05:49)
[2020-01-21] MEDS ORDERED: HYDROmorphone HCL INJ 2 MG/ML VIAL ONE (06:26)
[2020-01-21] MEDS ORDERED: ACETAMINOPHEN IV 1000MG 100 ML ONE (06:27)
[2020-01-21] MEDS ORDERED: FAMOTIDINE INJ 10 MG/ML VIAL IV ONE (06:27)
[2020-01-21] MEDS ORDERED: MIDAZOLAM INJ 5 MG/5 ML VIAL ONE (06:27)
[2020-01-21] MEDS ORDERED: BUPIVACAINE LIPOSOME 13.3 MG/ML VIAL INJ ONE ×2 (06:29→06:50)
[2020-01-21] MEDS ORDERED: BUPIVACAINE 0.5% 30 ML VIAL INJ ONE ×2 (06:29→06:50)
[2020-01-21] MEDS: LACTATED RINGERS 1,000 ML IVS ONE ×2 (06:34→09:35)
[2020-01-21] MEDS ORDERED: LACTATED RINGERS 1,000 ML IVS ONE (06:34)
[2020-01-21] MEDS ORDERED: TRANEXAMIC ACID 1,000 MG/10 ML VIAL IV ONE (06:36)
[2020-01-21] MEDS ORDERED: KETAMINE HCL 100 MG/ML VIAL ONE (06:38)
[2020-01-21] MEDS ORDERED: ceFAZolin SODIUM 1 GM VIAL IRRIG ONE (06:50)
[2020-01-21] MEDS ORDERED: PROPOFOL 200 MG/20 ML VIAL IV ONE (07:00)
[2020-01-21] MEDS ORDERED: diphenhydrAMINE HCL 50 MG/ML VIAL ONE (07:00)
[2020-01-21] MEDS ORDERED: DEXAMETHASONE INJ 10 MG/ML VIAL ONE (07:00)
[2020-01-21] MEDS ORDERED: EPINEPHrine HCL AMP 1 MG/ML AMP ONE (07:00)
[2020-01-21] MEDS ORDERED: MAGNESIUM SULFATE INJ 1 GM/2 ML VIAL ONE (07:00)
[2020-01-21] MEDS ORDERED: SODIUM CHLORIDE 0.9% 50 ML VIAL ONE (07:00)
[2020-01-21] MEDS ORDERED: TEMAZEPAM 15 MG CAP PO PRN (09:17)
[2020-01-21] MEDS ORDERED: HYDROcodone 5MG/APAP 325MG 1 EA TAB PO PRN (09:17)
[2020-01-21] MEDS ORDERED: BENZOCAINE-MENTH LOZ (CEPACOL) 1 EA LOZ MT PRN (09:17)
[2020-01-21] MEDS ORDERED: MORPHINE SULFATE INJ 10 MG/ML VIAL IM PRN (09:17)
[2020-01-21] MEDS ORDERED: ACETAMINOPHEN 500 MG TAB PO PRN (09:17)
[2020-01-21] MEDS ORDERED: DEX 5% W/NACL 0.45% 1000ML 1,000 ML IVS PRN (09:17)
[2020-01-21] MEDS ORDERED: MAGNESIUM HYDROXIDE 30 ML UD PO PRN (09:17)
[2020-01-21] MEDS ORDERED: ALUMINUM & MAGNESIUM HYDROXIDE 30 ML UD PO PRN (09:17)
[2020-01-21] MEDS ORDERED: ONDANSETRON INJ 4 MG/2 ML VIAL IV PRN (09:17)
[2020-01-21] MEDS ORDERED: MORPHINE SULFATE INJ 10 MG/ML VIAL IV PRN (09:17)
[2020-01-21] MEDS ORDERED: ACETAMINOPHEN 325 MG TAB PO PRN (09:17)
[2020-01-21] MEDS ORDERED: traMADol HCL 50 MG TAB PO PRN (09:17)
[2020-01-21] MEDS ORDERED: ZOLPIDEM TARTRATE 5 MG TAB PO PRN (09:17)
[2020-01-21] MEDS ORDERED: NALOXONE HCL INJ 0.4 MG/ML VIAL IV PRN (09:17)
[2020-01-21] MEDS ORDERED: TRANEXAMIC ACID INJ 1,000 MG in SODIUM CHLORIDE 0.9% 100ML 100 ML IVPB ONE (09:17)
[2020-01-21] MEDS ORDERED: SODIUM CHLORIDE 0.9% (FLUSH) 10 ML SYG IV PRN (09:17)
[2020-01-21] MEDS ORDERED: PROMETHAZINE HCL INJ 25 MG in SODIUM CHLORIDE 0.9% 50ML 50 ML IVPB PRN (09:17)
[2020-01-21] MEDS ORDERED: BISACODYL SUPPOSITORY 10 MG PR PRN (09:17)
[2020-01-21] MEDS ORDERED: PROMETHAZINE HCL INJ 12.5 MG in SODIUM CHLORIDE 0.9% 50ML 50 ML IVPB PRN (09:17)
[2020-01-21] MEDS ORDERED: IV SET AND CAP CHANGE INJ INJ SCH (09:30)
[2020-01-21] MEDS ORDERED: MORPHINE PCA 1 MG/ML 100 ML BAG IVPB SCH (09:30)
[2020-01-21] MEDS ORDERED: CADD ADMIN SET 1 EA PKG INJ ONE (09:49)
[2020-01-21] MEDS ORDERED: hydrOXYzine HCl 25 MG TAB ONE (10:36)
[2020-01-21] MEDS: diphenhydrAMINE HCL 50 MG/ML VIAL IV PRN ×2 (12:10→16:16)
[2020-01-21] MEDS ORDERED: ALBUTEROL INH (ER DISPENSE) 1 EA INH INH SCH (13:00)
--- NOTE | 2020-01-21 13:21 | CONS ---
SUPERVISING PHYSICIAN: Sha Ordonez MD DATE OF CONSULTATION: 01/21/20 REASON FOR CONSULTATION: Medical management. HISTORY OF PRESENT ILLNESS: This is a 54-year-old female who came to the hospital electively for a left total knee arthroplasty. The patient had ongoing left knee osteoarthritis which has failed conservative measures. Therefore, she was offered surgical intervention and accepted. Today, surgery was done without any acute complications and the patient was brought to the Medical/Surgical Unit postoperatively. Her only complaint at this time is itching. She is awake. No complaints of pain at this time. PAST MEDICAL HISTORY: 1. Asthma. 2. Gastroesophageal reflux. 3. Irritable bowel syndrome with constipation. PAST SURGICAL HISTORY: 1. Left ankle ORIF. 2. Left knee arthroscopy. 3. Right wrist surgery. 4. Gastric bypass surgery. 5. Cholecystectomy. 6. Hysterectomy. MEDICATIONS: Please see med rec list once verified in the computer. ALLERGIES: ASPIRIN, CODEINE, LEVAQUIN, NAPROSYN, NSAIDs, TORADOL. FAMILY HISTORY: Reviewed and noncontributory. SOCIAL HISTORY: Nondrinker, nonsmoker, no illicit drugs. REVIEW OF SYSTEMS: Other than the chronic left knee pain and the acute itching, no abnormalities. PHYSICAL EXAMINATION: VITAL SIGNS: Blood pressure 130/74, heart rate 44, respiratory rate 16, temperature 97.0, oxygen saturation 97%. GENERAL: Ms. Randle is a 54-year-old female in no active distress. NEUROLOGIC: The patient is alert. LUNGS: Clear to auscultation bilaterally. CARDIOVASCULAR: Regular rate and rhythm. Normal S1, S2. ABDOMEN: Soft. Positive bowel sounds. GENITOURINARY: Deferred. EXTREMITIES: Lower extremities with trace ankle edema. Pulses 2+. Capillary refill is less than 2 seconds. She does have the left lower extremity in an Raimundo and ice pack in place at this time. IMPRESSION: 1. Left knee osteoarthritis status post left total knee arthroplasty, postoperative day 0. 2. History of asthma with no acute exacerbation. 3. Reflux. PLAN: The patient will be admitted to the Medical/Surgical Unit for postoperative pain control as well as physical therapy. We will continue to monitor her progress to better be able to anticipate discharge planning. We will resume her home medications once they are verified in the computer and ensure that she has standard anticoagulation postoperatively. #[id number] [facility]
--- NOTE | 2020-01-21 13:26 | OP ---
DATE OF PROCEDURE: 01/21/20 PREOPERATIVE DIAGNOSIS: 1. Osteoarthritis of the left knee. POSTOPERATIVE DIAGNOSIS: 1. Osteoarthritis of the left knee. PROCEDURE: 1. Total knee arthroplasty. SURGEON: Juan Robb MD. MANAGING SUPERVISOR: Darnell San CST, SA-C. ANESTHESIA: General anesthesia. COMPLICATIONS: None. FINDINGS: Severe arthritis of the knee. INDICATION: Ms. Randle has a history of severe knee pain and has undergone multiple conservative measures, however, has failed to gain relief. Because of her ongoing discomfort, she has requested operative intervention. After discussing the risks, benefits and alternatives to that, the patient has given informed consent for total knee arthroplasty. PROCEDURE: The patient was brought to the Operating Room and placed in supine position. General anesthesia was induced and the patient's leg was sterilely prepped and draped. Following prepping and draping, the distal femur was exposed and using an intramedullary guide, the distal femoral cut was made. The appropriate sized cutting block was measured, pinned into place, and the anterior, posterior, and chamfer cuts were made. The ACL was transected and the tibia was subluxed. Both the medial and lateral menisci were removed. An intramedullary guide was used to make the proximal tibial cut. The appropriate sized base plate was placed and a trial polyethylene was placed. The trial femur was placed, the knee was reduced, and the knee was taken through a range of motion. The knee was stable in anterior, posterior, varus and valgus stress. The patella tracked anatomically without evidence of subluxation or dislocation. After trialing, the trial components were removed and the bony surfaces were thoroughly irrigated with saline. Following irrigation, the surfaces were dried and the final components were cemented into place. The excess cement was removed and the remaining cement was allowed to cure. The knee was again taken through a range of motion to confirm stability. The wound was then irrigated with saline and closure was performed using PDS to approximate the arthrotomy followed by closure of the subcutaneous tissues with a combination of running and interrupted Monocryl sutures. Sterile dressing was placed. The patient was awoken from anesthesia and taken to Recovery. COMPONENTS: StelKast knee, size 3.5 femur, size 3 tibia, 10 mm insert. POSTOPERATIVE PLAN: The patient will be admitted for postoperative physical therapy and weight-bearing as tolerated on postoperative day 1. #[id number] [facility]
[2020-01-21] MEDS ORDERED: ALBUTEROL INHALER 64 PUFF/8GM INH PRN (13:31)
[2020-01-21] MEDS ORDERED: SODIUM CHL 0.9% 250ML (AVIVA) 250 ML IVPB ONE (15:35)
[2020-01-21] MEDS: ceFAZolin SODIUM 2 GM in SODIUM CHLORIDE 0.9% 100ML 100 ML IVPB SCH ×2 (15:58→23:35)
[2020-01-21] MEDS ORDERED: ceFAZolin SODIUM 1 GM in SODIUM CHL 0.9% 50ML MIN-BAG+ 50 ML IVPB SCH (16:00)
[2020-01-21] MEDS ORDERED: CELECOXIB 100 MG CAP PO SCH (17:00)
[2020-01-21] MEDS: VANCOMYCIN HCL INJ 1,000 MG in SODIUM CHLORIDE 0.9% 250ML 250 ML IVPB SCH (17:47)
[2020-01-21] MEDS ORDERED: DOCUSATE CALCIUM 240 MG CAP ONE (19:12)
[2020-01-21] MEDS: hydrOXYzine HCl 25 MG TAB PO PRN (19:14)
[2020-01-21] MEDS: DOCUSATE CALCIUM 240 MG CAP PO SCH (21:00)
[2020-01-21] MEDS: ENOXAPARIN SODIUM 30 MG/0.3 ML SYG SUBCU SCH (23:30)
[2020-01-22] MEDS ORDERED: PANTOPRAZOLE SODIUM TAB 40 MG PO ONE (04:19)
[2020-01-22] MEDS: VANCOMYCIN HCL INJ 1,000 MG in SODIUM CHLORIDE 0.9% 250ML 250 ML IVPB SCH (05:53)
[2020-01-22] MEDS: PANTOPRAZOLE SODIUM TAB 40 MG PO SCH (05:53)
[2020-01-22] MEDS ORDERED: CETIRIZINE HCL 10 MG TAB PO ONE ×2 (07:51→19:17)
[2020-01-22] MEDS ORDERED: MONTELUKAST 10 MG TAB ONE (07:51)
[2020-01-22] MEDS ORDERED: MAGNESIUM OXIDE 400 MG TAB ONE (07:51)
[2020-01-22] MEDS ORDERED: FLUTICASONE PROP 0.05% NASAL 16 GM BTTL ONE (07:52)
[2020-01-22] MEDS: FLUTICASONE PROP 0.05% NASAL 16 GM BTTL BNAS SCH (08:15)
[2020-01-22] MEDS: MAGNESIUM OXIDE 400 MG TAB PO SCH (08:15)
--- NOTE | 2020-01-22 08:15 | RAD ---
EXAM DESCRIPTION: Knee,Left 1 or 2 Views CLINICAL HISTORY: 54 years Female, TKA COMPARISON: None. Findings: Two images Location: Left knee Recent left total knee arthroplasty. No evidence of hardware complication. No acute fracture or dislocation. Expected postsurgical appearance of the overlying soft tissues. IMPRESSION: Recent left total knee arthroplasty. No evidence of hardware complication. Electronically signed by: Gianfranco Phillips MD 01/22/2020 8:14 AM CDT
[2020-01-22] MEDS: MONTELUKAST 10 MG TAB PO SCH (08:16)
[2020-01-22] MEDS ORDERED: NON-FORMULARY MEDICATION 1 EA MIS (Dexlansoprazole [Dexilant] 60 MG) PO SCH (09:00)
[2020-01-22] MEDS ORDERED: CETIRIZINE HCL 10 MG TAB PO SCH (09:00)
[2020-01-22] MEDS ORDERED: [UNRECOGNIZED DRUG - REMARK] PO SCH (09:00)
[2020-01-22] MEDS: (Fluticasone Furoate-Vilanterol [Breo Ellipta 100-25 Mcg INH SCH (09:28)
[2020-01-22] MEDS: HYDROcodone 10MG/APAP 325MG 1 EA TAB PO PRN ×2 (11:17→17:47)
[2020-01-22] MEDS: hydrOXYzine HCl 25 MG TAB PO PRN ×2 (11:18→19:32)
[2020-01-22] MEDS: ceFAZolin SODIUM 2 GM in SODIUM CHLORIDE 0.9% 100ML 100 ML IVPB SCH (12:00)
[2020-01-22] MEDS: NON-FORMULARY MEDICATION 1 EA MIS (Linaclotide [Linzess] 290 MCG) PO SCH (15:02)
[2020-01-22] MEDS: CYCLOBENZAPRINE HCL 10 MG TAB PO PRN (17:47)
[2020-01-22] MEDS: ENOXAPARIN SODIUM 30 MG/0.3 ML SYG SUBCU SCH ×3 (19:02→21:11)
[2020-01-22] MEDS: diphenhydrAMINE HCL 50 MG/ML VIAL IV PRN (19:32)
[2020-01-22] MEDS: DOCUSATE CALCIUM 240 MG CAP PO SCH (20:27)
[2020-01-22] MEDS: CETIRIZINE HCL 10 MG TAB PO SCH (20:27)
[2020-01-23] MEDS: CYCLOBENZAPRINE HCL 10 MG TAB PO PRN ×2 (05:30→15:25)
[2020-01-23] MEDS: HYDROcodone 10MG/APAP 325MG 1 EA TAB PO PRN ×5 (05:30→22:45)
[2020-01-23] MEDS: PANTOPRAZOLE SODIUM TAB 40 MG PO SCH (06:33)
[2020-01-23] MEDS: MAGNESIUM OXIDE 400 MG TAB PO SCH (08:07)
[2020-01-23] MEDS: MONTELUKAST 10 MG TAB PO SCH (08:08)
[2020-01-23] MEDS: SODIUM CHLORIDE 0.9% (FLUSH) 10 ML SYG IV SCH ×2 (08:08→21:11)
[2020-01-23] MEDS: NON-FORMULARY MEDICATION 1 EA MIS (Linaclotide [Linzess] 290 MCG) PO SCH (08:09)
[2020-01-23] MEDS: FLUTICASONE PROP 0.05% NASAL 16 GM BTTL BNAS SCH (08:09)
[2020-01-23] MEDS: (Fluticasone Furoate-Vilanterol [Breo Ellipta 100-25 Mcg INH SCH (08:30)
[2020-01-23] MEDS ORDERED: ONDANSETRON 4 MG TAB PO PRN (08:44)
[2020-01-23] MEDS: ENOXAPARIN SODIUM 30 MG/0.3 ML SYG SUBCU SCH ×2 (10:01→22:42)
--- NOTE | 2020-01-23 13:10 | PN ---
DATE: 01/22/20 SUBJECTIVE: Ms. Randle is doing well. OBJECTIVE: Afebrile. Vital signs stable. Dressing is clean, dry and intact. ASSESSMENT: Status post total knee arthroplasty. PLAN: She will begin weightbearing as tolerated on postoperative day 1. We will progress that as she is able to do so. #[id number] [facility]TDD
--- NOTE | 2020-01-23 13:11 | PN ---
DATE: 01/23/20 SUBJECTIVE: Ms. Randle is doing well and is up on a walker independently. OBJECTIVE: Afebrile. Vital signs stable. Dressing is clean, dry and intact. ASSESSMENT: Status post total knee arthroplasty. PLAN: She will continue with her therapy and she will be discharged tomorrow. #[id number] [facility]TDD
[2020-01-23] MEDS: CETIRIZINE HCL 10 MG TAB PO SCH (21:11)
[2020-01-23] MEDS: DOCUSATE CALCIUM 240 MG CAP PO SCH (21:11)
[2020-01-23] MEDS: hydrOXYzine HCl 25 MG TAB PO PRN (22:53)
[2020-01-24] MEDS: HYDROcodone 10MG/APAP 325MG 1 EA TAB PO PRN ×2 (04:47→08:50)
[2020-01-24] MEDS: CYCLOBENZAPRINE HCL 10 MG TAB PO PRN (04:48)
[2020-01-24] MEDS: PANTOPRAZOLE SODIUM TAB 40 MG PO SCH (05:39)
[2020-01-24] MEDS: (Fluticasone Furoate-Vilanterol [Breo Ellipta 100-25 Mcg INH SCH (08:08)
[2020-01-24 08:30] VITALS: O2SAT 99
[2020-01-24] MEDS: MONTELUKAST 10 MG TAB PO SCH (08:38)
[2020-01-24] MEDS: MAGNESIUM OXIDE 400 MG TAB PO SCH (08:38)
[2020-01-24] MEDS: NON-FORMULARY MEDICATION 1 EA MIS (Linaclotide [Linzess] 290 MCG) PO SCH (08:39)
[2020-01-24] MEDS: FLUTICASONE PROP 0.05% NASAL 16 GM BTTL BNAS SCH (08:39)
[2020-01-24] MEDS: SODIUM CHLORIDE 0.9% (FLUSH) 10 ML SYG IV SCH (08:39)
[2020-01-24] MEDS: ENOXAPARIN SODIUM 30 MG/0.3 ML SYG SUBCU SCH (10:53)
[2020-01-24] MEDS: hydrOXYzine HCl 25 MG TAB PO PRN (10:53)
[2020-01-24 12:49] VITALS: BP 144/77; TEMP 98.6
[2020-01-24] MEDS ORDERED: MAGNESIUM HYDROXIDE 30 ML UD PO ONE (21:00)
[2020-01-24] MEDS ORDERED: BISACODYL SUPPOSITORY 10 MG PR ONE (21:00)
--- NOTE | 2020-01-25 08:24 | DS ---
SUPERVISING PHYSICIAN: Sha Ordonez MD ADMISSION DIAGNOSES: 1. Left knee osteoarthritis status post left total knee arthroplasty, postoperative day #0. 2. History of asthma with no acute exacerbation. 3. Reflux. DISCHARGE DIAGNOSES: 1. Left knee osteoarthritis status post left total knee arthroplasty, postoperative day #3 2. History of asthma with no acute exacerbation. 3. Reflux. REASON FOR HOSPITALIZATION: This is a 54-year-old female who came to the hospital electively for a left total knee arthroplasty. The patient had ongoing left knee osteoarthritis which has failed conservative measures. Therefore, she was offered surgical intervention and accepted. Surgery was done today without any acute complications and the patient was brought to the Medical/Surgical Unit postoperatively. Her only complaint at this time is itching. She is awake. No complaints of pain at this time. LABORATORY: Postoperative hemoglobin 12.5, hematocrit 37.9 HOSPITAL COURSE: Ms. Randle was admitted for elective left total knee arthroplasty. She did well intraoperative and postoperative. She continues with physical therapy and on the morning of discharge was felt stable and improved well enough clinically to continue [facility] and continue physical therapy rehabilitation. PROCEDURES: Elective left total knee arthroplasty performed by Dr. Juan Robb. Please see his note for details. PLAN: Ms. Randle is discharged on 01/24/20. She needs to followup with Dr. Robb as scheduled. She is to resume her previous medications as instructed. Activities are to increase physical activity with a walker as per physical therapy. She is to continue with the physical therapy [facility]. Diet is normal diet as tolerated. Medications prescribed on discharge: Xarelto 10 mg daily for 8 days. Pain management as per Dr. Robb's written prescription. Wound management as per Dr. Robb's postoperative instructions. Disposition: The patient is discharged home. #[id number] MTDD
== END 2020-01-24 12:55 | disposition home or self-care (01) | DRG 470 ==
LOC: AMB 05:14 → MS 11:15
PROVIDERS: ADMIT Orthopaedic Surgery; ATTEND Nurse Practitioner Family
PROC: 0SRD0J9 Replacement of Left Knee Joint with Synthetic Substitute, Cemented, Open Approach (ICD-10-PCS; principal; 2020-01-24)
DX: M17.12 Unilateral primary osteoarthritis, left knee (principal); G89.29 Other chronic pain; J45.909 Unspecified asthma, uncomplicated; K21.9 Gastro-esophageal reflux disease without esophagitis; K58.1 Irritable bowel syndrome with constipation; E66.9 Obesity, unspecified; Z98.84 Bariatric surgery status; Z88.6 Allergy status to analgesic agent; Z88.5 Allergy status to narcotic agent; Z88.1 Allergy status to other antibiotic agents; Z79.891 Long term (current) use of opiate analgesic; Z79.52 Long term (current) use of systemic steroids; Z79.51 Long term (current) use of inhaled steroids; Z79.899 Other long term (current) drug therapy; Z68.36 Body mass index [BMI] 36.0-36.9, adult

== ENCOUNTER 2020-01-31 19:05 | Emergency (ER) | payer MEDICARE ==
[2020-01-31] MEDS ORDERED: FAMOTIDINE IV PREMIX 20 MG in PREMIX BAG 1 BAG IVPB ONE (19:45)
[2020-01-31] MEDS ORDERED: methylPREDNISolone SODIUM SUC 40 MG/ML VIAL IV ONE (19:45)
[2020-01-31] MEDS ORDERED: diphenhydrAMINE HCL 50 MG/ML VIAL IV ONE (19:46)
[2020-01-31 20:02] VITALS: O2SAT 100
[2020-01-31] MEDS ORDERED: MORPHINE SULFATE INJ 10 MG/ML VIAL IV ONE (20:39)
--- NOTE | 2020-01-31 20:58 | ED.PDOC ---
History of Present Illness - General Chief Complaint: Skin/Abrasion/Tear Stated Complaint: rash to body Time Seen by Provider: 01/31/20 19:44 Source: patient, RN notes reviewed, Vital Signs reviewed - History of Present Illness Initial Comments: This is a 54-year-old female presenting 10 days after left total knee replacement for hives to her entire body that began this morning. She denies any shortness of breath, abdominal pain, vomiting, or swelling in her mouth/tongue. No previous history of hives. The only change in her medications was this morning when she took combination of milk of magnesia, Dr. Solis, and prune juice that was recommended by her surgeon for constipation related to her opiate medications. She states she has had all these things individually before without any reaction. She took a Benadryl at 6 AM this morning without much improvement Allergies/Adverse Reactions: Allergies Aspirin Allergy (Intermediate, Verified 01/23/20 21:10) Shortness of Breath Diclofenac [From Voltaren] Allergy (Intermediate, Verified 01/23/20 21:10) Shortness of Breath D/T the product has ASA in it. Levofloxacin [From Levaquin] Allergy (Intermediate, Verified 01/23/20 21:10) Rash Penicillins Adverse Reaction (Severe, Verified 01/23/20 21:10) Vomitting Codeine Adverse Reaction (Intermediate, Verified 01/23/20 21:10) Other Itching Ketorolac Tromethamine [From Toradol] Adverse Reaction (Mild, Verified 01/23/20 21:10) Other Hallucinations Naproxen [From Naprosyn] Adverse Reaction (Unknown, Verified 01/23/20 21:10) Other Patient had gastric bypass. Can no longer take any NSAIDs following this surgery. NSAIDs Adverse Reaction (Unknown, Verified 01/23/20 21:10) Other Patient had gastric bypass. Can no longer take any NSAIDs following this surgery. Home Medications: Ambulatory Orders Linaclotide [Linzess] 290 mcg PO DAILY 10/25/18 Dexlansoprazole [Dexilant] 60 mg PO DAILY 04/17/19 Montelukast [Singulair] 10 mg PO DAILY 04/17/19 Cetirizine HCl [Zyrtec Allergy] 10 mg PO QAM 12/10/19 Fluticasone Propionate (Nasal) [Flonase Allergy Relief] 50 mcg INH QAM 12/10/19 Albuterol Sulfate [Ventolin Hfa] 1 puff INH PRN 01/16/20 Fluticasone Furoate-Vilanterol [Breo Ellipta 100-25 Mcg/INH] 1 puff INH DAILY 01/16/20 Rivaroxaban [Xarelto] 10 mg PO DAILY #8 tab 01/24/20 Cetirizine HCl [ZyrTEC] 10 mg PO DAILY PRN #20 tab 01/31/20 Prednisone 50 mg PO DAILY #4 tab 01/31/20 Review of Systems - Review of Systems Constitutional: Denies: chills EENTM: Denies: ear pain, nose pain, throat pain, throat swelling, mouth pain, mouth swelling Respiratory: Denies: cough, short of breath, wheezing Cardiology: Denies: chest pain, edema, syncope Gastrointestinal/Abdominal: Denies: abdominal pain, diarrhea, nausea, vomiting Genitourinary: Denies: dysuria, hematuria Musculoskeletal: States: joint pain. Denies: joint swelling, muscle stiffness, neck pain Skin: States: rash. Denies: dryness Neurological: Denies: headache, paresthesia, weakness Endocrine: States: no symptoms reported Hematologic/Lymphatic: States: no symptoms reported Past Medical History (General) - Patient Medical History Hx Seizures: No Hx Stroke: No Hx Asthma: Yes Hx of COPD: No Hx Congestive Heart Failure: No Hx Pacemaker: No Hx Hypertension: No Hx Diabetes: No Hx Cancer: No Hx Hepatitis C: No Hx MRSA: No - Vaccination History Hx Tetanus, Diphtheria Vaccination: Yes Hx Influenza Vaccination: No Hx Pneumococcal Vaccination: No Immunizations Up to Date: No - Social History Hx Tobacco Use: No Hx Alcohol Use: Yes - socially Hx Substance Use: No Hx Substance Use Treatment: No Hx Depression: No Hx Physical Abuse: No Hx Emotional Abuse: No - Female History Patient : No Family Medical History - Family History Mother Maternal Family History: Unknown Living Status: Unknown Physical Exam - Physical Exam General Appearance: Alert, Comfortable Eyes, Ears, Nose, Throat Exam: PERRL/EOMI, normal ENT inspection, TMs normal, pharynx normal Neck: non-tender, full range of motion, supple, normal inspection, other - No stridor Cardiovascular/Chest: normal peripheral pulses, regular rate, rhythm, no edema, no gallop Respiratory: chest non-tender, lungs clear, normal breath sounds, no respiratory distress Gastrointestinal/Abdominal: non tender, soft Extremity: normal range of motion, non-tender Neurologic: no motor/sensory deficits, alert, normal mood/affect, oriented x 3 Skin Exam: other - Diffuse urticaria Skin Problem Location: generalized Skin Character: urticarial Lymphatic: no adenopathy Progress - Progress Progress: 01/31/20 21:20 Rechecked. Hives improving. Patient feeling better, wants to go home. recommended follow-up with PCP in 2 to 3 days for recheck. Strict warnings given to return the emergency room for worsening hives, shortness of breath, swelling in mouth/tongue/airway, abdominal pain/vomiting, or any other concerns DDx: Allergic urticaria, fixed drug eruption, psychogenic hives MDM: Patient presenting with urticarial rash began this morning, trigger is unclear. She has no viral infection symptoms. Symptoms started after taking a combination of milk of magnesia, Dr. Pepper, and prune juice, but she has had all these things individually without any previous reactions. She denies any other new medications or foods. Symptoms improving with IV steroids and antihistamines. No evidence of anaphylaxis or airway compromise. Will discharge home with steroid course as well as antihistamines. Strict ER warnings given to return for worsening. Karan Bassett DO [facility] #[id number] - Results/Orders Results/Orders: Laboratory Results - last 24 hr 01/31/20 01/31/20 19:58 19:58 WBC 10.6 RBC 4.91 Hgb 14.0 Hct 41.7 MCV 85.0 MCH 28.5 MCHC 33.6 RDW 13.4 Plt Count 454 H MPV 7.2 L Absolute Neuts (auto) 8.60 H Absolute Lymphs (auto) 1.40 Absolute Monos (auto) 0.40 Absolute Eos (auto) 0.10 Absolute Basos (auto) 0.10 Neutrophils % 81.4 H Lymphocytes % 13.0 L Monocytes % 3.9 Eosinophils % 1.1 Basophils % 0.6 Sodium 135 Potassium 4.3 Chloride 99 L Carbon Dioxide 24 Anion Gap 16.3 BUN 19 H Creatinine 1.10 BUN/Creatinine Ratio 17.3 Random Glucose 129 H Serum Osmolality 274.1 L Calcium 9.4 Departure - Departure Clinical Impression: Urticaria Disposition: Discharge to Home or Self Care Condition: Good Departure Forms: ED Discharge - Pt. Copy, Patient Portal Self Enrollment Instructions: DI for Abrasion Diet: resume usual diet Activity: increase activity as tolerated Referrals: Jose E Lane MD [Primary Care Provider] - 1-5 Days Prescriptions: Prednisone 50 mg PO DAILY #4 tab Cetirizine HCl [ZyrTEC] 10 mg PO DAILY PRN #20 tab PRN Reason: Allergies Home Medications: Ambulatory Orders Linaclotide [Linzess] 290 mcg PO DAILY 10/25/18 Dexlansoprazole [Dexilant] 60 mg PO DAILY 04/17/19 Montelukast [Singulair] 10 mg PO DAILY 04/17/19 Cetirizine HCl [Zyrtec Allergy] 10 mg PO QAM 12/10/19 Fluticasone Propionate (Nasal) [Flonase Allergy Relief] 50 mcg INH QAM 12/10/19 Albuterol Sulfate [Ventolin Hfa] 1 puff INH PRN 01/16/20 Fluticasone Furoate-Vilanterol [Breo Ellipta 100-25 Mcg/INH] 1 puff INH DAILY 01/16/20 Rivaroxaban [Xarelto] 10 mg PO DAILY #8 tab 01/24/20 Cetirizine HCl [ZyrTEC] 10 mg PO DAILY PRN #20 tab 01/31/20 Prednisone 50 mg PO DAILY #4 tab 01/31/20
[2020-01-31 21:48] VITALS: BP 124/82; TEMP 96.1
== END 2020-01-31 21:44 | disposition home or self-care (01) ==
LOC: ER 19:05
DX: L50.9 Urticaria, unspecified (principal); J45.909 Unspecified asthma, uncomplicated; Z96.652 Presence of left artificial knee joint; Z88.0 Allergy status to penicillin; Z88.8 Allergy status to other drugs, medicaments and biological substances; Z79.899 Other long term (current) drug therapy
CPT/HCPCS: 80048; 85025; J1030; J1200; J2270; J3490

== ENCOUNTER 2020-03-16 05:50 | Day surgery (SDC) | payer MEDICARE ==
[2020-03-16] MEDS ORDERED: LIDOCAINE 1% 10 ML VIAL INJ ONE (07:00)
[2020-03-16] MEDS ORDERED: PROPOFOL 200 MG/20 ML VIAL IV ONE (07:00)
[2020-03-16] MEDS ORDERED: LACTATED RINGERS 1,000 ML ONE (09:24)
[2020-03-16] MEDS ORDERED: HYDROmorphone HCL INJ 2 MG/ML VIAL ONE (10:08)
[2020-03-16] MEDS ORDERED: HYDROcodone 5MG/APAP 325MG 1 EA TAB ONE (10:31)
[2020-03-16] MEDS ORDERED: diphenhydrAMINE HCL 25 MG CAP ONE (10:33)
[2020-03-16 11:24] VITALS: BP 126/73; TEMP 96.9; O2SAT 99
--- NOTE | 2020-03-18 09:55 | OP ---
DATE OF PROCEDURE: 03/16/20 PREOPERATIVE DIAGNOSIS: 1. Arthrofibrosis. POSTOPERATIVE DIAGNOSIS: 1. Arthrofibrosis. PROCEDURE: 1. Closed manipulation under anesthesia. SURGEON: Juan Robb MD. SALES ADVISOR: Darnell San CST, SA-C. ANESTHESIA: Conscious sedation. COMPLICATIONS: None. FINDINGS: Preoperative flexion to about 100 degrees, approximately 10 degree flexion contracture. Postoperative range of motion, about a 5 degree flexion contracture and flexion to about 115+ degrees. INDICATION: Ms. Randle has a history of total knee arthroplasty. Unfortunately, her pain tolerance is not great and she has had some difficulty with therapy. Because of that difficulty, she and I have discussed her range of motion and possibility of ongoing improvement. Given that, she decided to undergo closed manipulation. After discussing the risks, benefits and alternatives to that, she gave informed consent for that. PROCEDURE: The patient was brought to the Operating Room and placed in supine position. Sedation was administered and the leg was hyperflexed. Following hyperflexion, the knee was examined under fluoroscopic imaging to ensure no acute problems. The patient was then awoken from anesthesia and taken to Recovery. POSTOPERATIVE PLAN: The patient is going to be doing range of motion of the knee and she will followup with us in about two weeks. She should start immediately and she has been encouraged to be do range of motion on a daily basis at home. #[id number] [facility]
--- NOTE | 2020-04-03 10:23 | RAD ---
Intraoperative radiographs of the left knee Indication: TIMO LEFT KNEE Comparison: None Impression: Fluoroscopy time 5 seconds. 1 images submitted. Postoperative changes of total knee arthroplasty noted. Electronically signed by: Adan Ro MD 04/03/2020 10:22 AM [facility]
== END 2020-03-16 11:15 | disposition home or self-care (01) ==
LOC: AMB 05:50
PROVIDERS: ATTEND Orthopaedic Surgery
DX: M24.662 Ankylosis, left knee (principal); J45.909 Unspecified asthma, uncomplicated; K21.9 Gastro-esophageal reflux disease without esophagitis; Z88.5 Allergy status to narcotic agent; Z88.0 Allergy status to penicillin; Z88.8 Allergy status to other drugs, medicaments and biological substances; Z98.84 Bariatric surgery status; Z90.711 Acquired absence of uterus with remaining cervical stump; Z79.01 Long term (current) use of anticoagulants; Z79.899 Other long term (current) drug therapy
CPT/HCPCS: 01380; 27570; 76000; 80307; J1170; J7120; Q0163

== ENCOUNTER 2020-03-24 11:39 | Emergency (ER) | payer MEDICARE ==
[2020-03-24] MEDS ORDERED: ONDANSETRON INJ 4 MG/2 ML VIAL IV ONE (12:35)
[2020-03-24] MEDS ORDERED: SODIUM CHLORIDE 0.9% 1000ML 1,000 ML IVS ONE (12:36)
--- NOTE | 2020-03-24 13:00 | RAD ---
EXAM DESCRIPTION: Chest,1 View CLINICAL HISTORY: 54 years Female, VOMITING COMPARISON: 01/07/2020 TECHNIQUE: Single view radiograph of the chest. IMPRESSION: Normal size cardiac silhouette. Elevation right hemidiaphragm. Bibasilar atelectasis. No pleural effusion or pneumothorax. Mild thoracic spondylosis. Electronically signed by: Sergei Brewster MD 03/24/2020 12:58 PM [employer]
--- NOTE | 2020-03-24 13:15 | ED.PDOC ---
History of Present Illness - General Chief Complaint: GI Problem Stated Complaint: n/v x2 days Time Seen by Provider: 03/24/20 12:34 Information Source: patient - History of Present Illness Initial Comments: PATIENT DEVELOPED NAUSEA AND VOMITING ABOUT 2 DAYS AGO, IT SO HAPPENS THAT SHE RAN OUT OF HER TRAMADOL ABOUT THE SAME TIME. PATIENT INSIST THERE IS NO RELATION BETWEEN THE TWO. SHE DENIES OTHER SYMPTOMS OTHER THAN SOME LOOSE BM. PATIENT IS REQUESTING TRAMADOL FOR HER KNEE PAIN. PMHX OF KNEE REPLACEMENT 5 WEEKS AGO. Pain Radiation: no radiation Quality: moderate Timing/Duration: days - 2 Improving Factors: nothing Worsening Factors: nothing Associated Symptoms: denies symptoms Review of Systems - Review of Systems Constitutional: States: no symptoms reported Respiratory: States: no symptoms reported Cardiology: States: no symptoms reported Gastrointestinal/Abdominal: States: see HPI Genitourinary: States: frequency Musculoskeletal: States: no symptoms reported Skin: States: no symptoms reported Neurological: States: no symptoms reported Endocrine: States: no symptoms reported Hematologic/Lymphatic: States: no symptoms reported Past Medical History (General) - Patient Medical History Hx Seizures: No Hx Stroke: No Hx Asthma: Yes Hx of COPD: No Hx Congestive Heart Failure: No Hx Pacemaker: No Hx Hypertension: No Hx Thyroid Disease: No Hx Diabetes: No Hx Gastroesophageal Reflux: No Hx Renal Disease: No Hx Cancer: No Hx Hepatitis C: No Hx MRSA: No Surgical History: appendectomy, cholecystectomy, tonsillectomy, Hysterectomy, other - Vaccination History Hx Tetanus, Diphtheria Vaccination: Yes Hx Influenza Vaccination: No Hx Pneumococcal Vaccination: No - Social History Hx Tobacco Use: No Hx Alcohol Use: Yes - socially Hx Substance Use: No Hx Substance Use Treatment: No Hx Depression: No Hx Physical Abuse: No Hx Emotional Abuse: No - Female History Patient : No Family Medical History - Family History Mother Maternal Family History: Unknown Living Status: Unknown Physical Exam - Physical Exam General Appearance: Agitated, Well Developed, Well Groomed, Well Hydrated, Well Nourished Eyes, Ears, Nose, Throat Exam: PERRL/EOMI, normal ENT inspection Neck: non-tender, full range of motion, supple Respiratory: chest non-tender, lungs clear, normal breath sounds, no respiratory distress Cardiovascular/Chest: normal peripheral pulses, regular rate, rhythm, no edema, no gallop, no JVD Peripheral Pulses: No deficit Gastrointestinal/Abdominal: normal bowel sounds, non tender, soft, no organomegaly Back Exam: normal inspection, no CVA tenderness, no vertebral tenderness Extremity: normal range of motion, non-tender, normal inspection Neurologic: no motor/sensory deficits, alert, normal mood/affect, oriented x 3 Skin Exam: normal color, warm/dry, cyanosis Lymphatic: no adenopathy Progress - Progress Progress: 03/24/20 13:12 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 SUSPECT SYPMPTOMS ARE OPIOID WITHDRAWAL. WILL REQUIRE PATIENT TO GET OPIOIDS FROM HER TREATING PHYSICIAN, NOT APPROPRIATE RX FROM THE ER FOR PATIENT SAFETY. 03/24/20 13:18 SUSPECT URINE IS CONTAMINANT, POOR COLLECTION, BUT WILL CULTURE. Departure - Departure Clinical Impression: Nausea & vomiting Qualifiers: Vomiting type: unspecified Vomiting Intractability: unspecified Qualified Code(s): R11.2 - Nausea with vomiting, unspecified UTI (urinary tract infection) Qualifiers: Urinary tract infection type: acute cystitis Hematuria presence: without hematuria Qualified Code(s): N30.00 - Acute cystitis without hematuria Time of Disposition: 13:16 Disposition: Discharge to Home or Self Care Condition: Fair Departure Forms: ED Discharge - Pt. Copy, Patient Portal Self Enrollment Referrals: Jose E Lane MD [Primary Care Provider] - 1-2 Weeks Prescriptions: Promethazine HCl 25 mg PO Q4H PRN #20 tab PRN Reason: N/V Home Medications: Ambulatory Orders Linaclotide [Linzess] 290 mcg PO DAILY 10/25/18 Dexlansoprazole [Dexilant] 60 mg PO DAILY 04/17/19 Montelukast [Singulair] 10 mg PO DAILY 04/17/19 Cetirizine HCl [Zyrtec Allergy] 10 mg PO QAM 12/10/19 Fluticasone Furoate-Vilanterol [Breo Ellipta 100-25 Mcg/INH] 1 puff INH DAILY 03/24/20 Promethazine HCl 25 mg PO Q4H PRN #20 tab 03/24/20 Tramadol HCl 50 mg PO DAILY 03/24/20
[2020-03-24] MEDS ORDERED: traMADol HCL 50 MG TAB PO ONE (13:29)
[2020-03-24] MEDS ORDERED: ACETAMINOPHEN 500 MG TAB PO ONE (13:29)
[2020-03-24 15:06] VITALS: TEMP 98.2
[2020-03-24 15:08] VITALS: BP 131/95; O2SAT 99
== END 2020-03-24 14:45 | disposition home or self-care (01) ==
LOC: ER 11:39
DX: N30.00 Acute cystitis without hematuria (principal); R11.2 Nausea with vomiting, unspecified; M25.561 Pain in right knee; F11.90 Opioid use, unspecified, uncomplicated; J45.909 Unspecified asthma, uncomplicated; Z96.659 Presence of unspecified artificial knee joint; Z79.899 Other long term (current) drug therapy
CPT/HCPCS: 36415; 71045; 80053; 81001; 83690; 85025; 87635; 93005; J2405; J7030

== ENCOUNTER → 2020-04-06 | Outpatient (CLI) | payer MEDICARE ==
--- NOTE | 2020-04-07 08:26 | US ---
EXAM DESCRIPTION: Venous,Lower Extremity LT: ULTRASOUND. CLINICAL HISTORY: LEFT KNEE PAIN COMPARISON: None Available. TECHNIQUE: Gtz-scale and doppler sonographic evaluation of the deep venous system of the left lower extremity. FINDINGS: Doppler evaluation shows normal color flow and normal phasicity and augmentation of the left common femoral vein, left femoral vein, popliteal vein, left greater saphenous vein, junction with the CFV. Also normal color flow and normal phasicity and augmentation of the peroneal, and posterior tibial vein. The left lower extremity deep veins were completely compressible; normal occlusion with transducer pressure. Gtz-scale survey showed no echogenic thrombus within these veins. IMPRESSION: 1. Duplex ultrasound evaluation of the left lower extremity deep venous system showing no evidence of thrombosis. Electronically signed by: Darnell Sawant MD 04/07/2020 8:24 AM [facility]
== END ==
LOC: LAB.O 11:49
PROVIDERS: ATTEND Orthopaedic Surgery
DX: R60.0 Localized edema (principal); R30.0 Dysuria; M25.562 Pain in left knee

== ENCOUNTER → 2020-04-22 | Outpatient (CLI) | payer MEDICARE | LOC: YCFC.O 09:52 | PROVIDERS: ATTEND Nurse Practitioner Family | DX: Z20.828 Contact with and (suspected) exposure to other viral communicable diseases (principal) ==

== ENCOUNTER → 2020-05-28 | Outpatient (CLI) | payer MEDICARE ==
--- NOTE | 2020-05-30 19:17 | RAD ---
EXAM DESCRIPTION: Knee,Left Complete: CR/DR/XR. CLINICAL HISTORY: 54 years Femaletotal knee arthroplasty COMPARISON: Left knee radiographs 2 views January 2020. TECHNIQUE: 4 views AP standing, lateral standing, 45 degree AP flexion standing, and patellar sunrise left knee. FINDINGS: Left total knee arthroplasty. Customary position and near-anatomic alignment. Osseous structures abutting the arthroplasty components are unremarkable and stable. No fracture. No abnormal radiodense objects in the soft tissues or joint spaces. [place] patella unremarkable. IMPRESSION: No bony complications or hardware complications left total knee arthroplasty compared to postoperative images. Electronically signed by: Darnell Sawant MD 05/30/2020 7:16 PM [facility]
== END ==
LOC: YCFC.O 11:17
PROVIDERS: ATTEND Nurse Practitioner Family
DX: Z96.652 Presence of left artificial knee joint (principal)

== ENCOUNTER → 2020-06-10 | Outpatient (CLI) | payer MEDICARE ==
--- NOTE | 2020-06-11 08:35 | RAD ---
EXAM DESCRIPTION: Knee,Left Complete CLINICAL HISTORY: 54 years Female, UNILATERAL PRIMARY OSTEOARTHRITIS, LEFT KNEE COMPARISON: 05/28/2020 Findings: 3 view(s)/radiograph(s) Left total knee arthroplasty. No hardware complication. Osteopenia. No acute fracture or dislocation. Small joint effusion. IMPRESSION: Left total knee arthroplasty. No hardware complication. Electronically signed by: Gianfranco Phillips MD 06/11/2020 8:34 AM [facility]
== END ==
LOC: RAD 08:12
PROVIDERS: ATTEND Orthopaedic Surgery
DX: M17.12 Unilateral primary osteoarthritis, left knee (principal); Z96.652 Presence of left artificial knee joint